=== PATIENT | female | born 1975 | race Asian ===

== ENCOUNTER 2022-11-08 11:15 | Inpatient (IN) ==
[2022-11-08 14:25] LABS: ABS Eosinophils 0.1 10^3/ul (0-0.6); ABS Lymphocytes 2.4 10^3/ul (1.0-4.8); ABS Monocytes 0.5 10^3/ul (0-0.8); Eosinophil % 1.6 %; Hematocrit 40 % (35-47); Hemoglobin 12.9 g/dL (12.0-16.0); Lymphocyte % 26.7 %; Mean Corpuscular HGB Conc 32 g/dL (31-36); Mean Corpuscular Hemoglobin 27 pg (27-31); Mean Corpuscular Volume 84 fL (80-97); Mean Platelet Volume 6.6 fL (7.4-10.4); Platelet Count 447 10^3/uL (150-450); Red Blood Count 4.79 10^6 /uL (3.70-4.87); Red Cell Distribution Width 14 % (10-15)
[2022-11-08 15:00] LABS: Urine Benzodiazepine Screen None Detected (None Detect); Urine Cannabinoids Screen None Detected (None Detect); Urine Opiates Screen None Detected (None Detect)
[2022-11-08 15:13] LABS: ALT 18 U/L (7-52); AST 16 U/L (13-39); Acetaminophen < 15 mcg/mL; Albumin 4.2 g/dL (3.2-5.2); Albumin/Globulin Ratio 1.6 (1-3); Alcohol, S < 13 mg/dL (<13); Alkaline Phosphatase 76 U/L (35-149); Anion Gap 7 mmol/L (2-11); Blood Urea Nitrogen 14 mg/dL (6-24); CO2 Carbon Dioxide 23 mmol/L (22-32); Calcium 8.8 mg/dL (8.6-10.3); Chloride 107 mmol/L (101-111); Globulin 2.7 g/dL (2-4); Glucose 94 mg/dL (70-100); Potassium 4.3 mmol/L (3.5-5.0); Salicylate < 2.50 mg/dL (<30); Sodium 137 mmol/L (135-145); Total Protein 6.9 g/dL (6.4-8.9); eGFR CKD-EPI 100.8 (>60)
[2022-11-08 15:28] LABS: TSH Ultra Thyroid Stim Horm 2.84 mcIU/mL (0.34-5.60)
[2022-11-08 15:30] LABS: Free T4 1.26 ng/dL (0.61-1.12)
[2022-11-08] MEDS ORDERED: Al Hydrox/Mg Hydrox/Simet LIQ 30 ML UDC PO PRN (15:56)
[2022-11-08 16:43] LABS: HCG Pregnancy < 0.60 mIU/mL
[2022-11-11 08:17] LABS: HDL Cholesterol 56.8 mg/dL
[2022-11-11 10:39] VITALS: BP 151/90
[2022-11-11] MEDS ORDERED: ARIPiprazole LAUROXIL INITIO 675 MG/2.4 ML SYRINGE IM ONE (11:45)
[2022-11-11] MEDS ORDERED: ARIPiprazole LAUROXIL 662 MG/2.4 ML SYRINGE IM ONE (11:45)
== END 2022-11-11 16:28 | disposition home or self-care (01) | DRG 753 ==
LOC: ED 11:15 → EDHOLD 15:56 → BSU 17:57
PROVIDERS: ADMIT Psychiatry & Neurology Psychiatry; ATTEND Psychiatry & Neurology Psychiatry